=== PATIENT | female | born 1930 | race Caucasian/White ===

== ENCOUNTER → 2016-07-24 | Day surgery (SDC) | payer OTHER, MEDICARE ==
[2016-07-12 08:05] VITALS: Ht 157.5 cm; Wt 65.9 kg
[~2016-07-24] VITALS: Ht 157.5 cm; Wt 65.9 kg
[~2016-07-24] MED LIST: ACET-1256 PO; ALPR-411 PO; ATOR10TA82 PO; BLOOD THINNER SQ; CARB25TA PO; CITA10TA4 PO; LIDO5DIS10 TD; MAGNSUS5 PO; POLY335019 PO
== END | disposition home or self-care (01) ==
LOC: C.PAT 13:41 → EDSTATUS 14:00
PROVIDERS: ATTEND Physical Medicine & Rehabilitation
DX: M54.16 Radiculopathy, lumbar region (principal)

== ENCOUNTER → 2016-10-09 | Day surgery (SDC) | payer OTHER, MEDICARE ==
[2016-09-24 07:37] VITALS: Ht 157.5 cm; Wt 65.9 kg
[~2016-10-09] VITALS: Ht 157.5 cm; Wt 65.9 kg
[~2016-10-09] MED LIST changes: +IOPAMIDOL INJ 61% 15 ML VIAL ONE; +LIDOCAINE HCL 1% MPF 5 ML VIAL ONE; +SODIUM CHLORIDE 0.9% INJ 10 ML VIAL ONE
--- NOTE | 2016-10-09 11:51 | History & Physical Bridge - [place] ---
H&P Re-Evaluation Bridge Note: I have examined the patient, reviewed the History & Physical and in the interval since the performance of the History & Physical I have noted the following changes of clinical significance: No changes noted
[2016-10-09 12:16] VITALS: TEMP 37.2
--- NOTE | 2016-10-09 12:18 | Discharge Instructions ---
Discharge Instructions Date of Service October 09, 2016. Visit Reason for Visit: Lumbar Radiculopathy Discharge Discharge Diagnosis / Problem: leg pain Discharge Goals Goal(s): Decrease discomfort, Improve function Activity Recommendations Activity Limitations: resume your previous activity Anesthesia . Post Anesthesia Instructions: If you have had General Anesthesia or IV Sedation: * Do not drive today. * Resume driving when surgeon permits. * Do not make important decisions or sign legal documents today. * Call surgeon for: 1. Temperature elevations greater than 101 degrees F. 2. Uncontrollable pain. 3. Excessive bleeding. 4. Persistent nausea and vomiting. 5. Medication intolerance (nausea, vomiting or rash). * For nausea and vomiting use only clear liquids such as: tea, soda, bouillon until nausea subsides, then gradually increase diet as tolerated. * If you have any concerns or questions, call your surgeon's office. If physician is unavailable and it is an emergency, call 911 or go to the nearest emergency room. . Diet Recommendations Recommended Home Diet: resume previous diet Procedures Procedures Performed: Lumbar Epidural Steroid Injection Pending Studies Studies pending at discharge: no Medical Emergencies . Who to Call and When: Medical Emergencies: If at any time you feel your situation is an emergency, please call 911 immediately. . Non-Emergent Contact Non-Emergency issues call your: Specialist . . "Provider Documentation" section prepared by Raphael Olivo. .
[2016-10-09 12:28] VITALS: BP 146/79; PULSE 78; O2SAT 97
--- NOTE | 2016-10-09 14:23 | OPERATIVE REPORT ---
DATE OF OPERATION: 10/09/2016 PREOPERATIVE DIAGNOSES: Lumbar spinal stenosis with neurogenic claudication and bilateral lower extremity radiculopathies. POSTOPERATIVE DIAGNOSES: Same. PROCEDURE: Right paramedian L4-L5 interlaminar epidural steroid injection under fluoroscopic guidance. INDICATIONS: The patient is an 85-year-old white female who presents today for a lumbar epidural steroid injection. She received them with improvement in functional status. Last one was given in March and she is having a difficult time ambulating and functioning over the past weeks to months. PHYSICAL EXAMINATION: Pleasant female seated comfortably. She has no tenderness to palpation over sciatic notches. No focal weakness. She has had decrease distal sensation in the right L5 dermatomal distribution. CONSENT: Verbal and written consent was obtained from the patient. Risks and benefits were reviewed. Risks include, but are not limited to epidural abscess, epidural hematoma, allergic reaction, and dural puncture. The patient wishes to proceed. DESCRIPTION OF PROCEDURE: The patient was taken back to the special procedures room of the [facility], where she was maintained in a prone position. Backside was cleansed with chlorhexidine and a dry sterile dressing was placed. Fluoroscope was used to identify the L5-S1 intralaminar space. Overlying skin was anesthetized with 4 mL of lidocaine 1% with a 25-gauge 1-1/2 inch needle. A 22-gauge 3-1/2 inch Tuohy needle was then directed down towards the intralaminar space on the right side at L4-L5. Loss of resistance was noted at a depth of 6 cm. Isovue less than a 0.25 of a mL was injected in which showed an epidural placement. She then underwent injection after negative aspiration of 40 mg of Depo-Medrol and 4 mL of preservative free sodium chloride. Injection was well tolerated. DISPOSITION: 1. The patient was taken out into the discharge recovery area, where she will be discharged home once discharge criteria have been met. 2. Follow up in the [facility] Sports Medicine office in 2-4 weeks. I attest to the content of the Intraoperative Record and any orders documented therein. Any exceptio ns are noted below.
== END | disposition home or self-care (01) ==
LOC: X.SURG 11:10
PROVIDERS: ATTEND Physical Medicine & Rehabilitation
DX: M48.06 Spinal stenosis, lumbar region (principal); M54.16 Radiculopathy, lumbar region

== ENCOUNTER 2016-11-05 13:13 | Emergency (ER) | payer OTHER, MEDICARE ==
[~2016-11-05] VITALS: Ht 162.6 cm; Wt 66.7 kg
[~2016-11-05 13:13] MED LIST changes: -BLOOD THINNER SQ; -IOPAMIDOL INJ 61% 15 ML VIAL ONE; -LIDOCAINE HCL 1% MPF 5 ML VIAL ONE; -SODIUM CHLORIDE 0.9% INJ 10 ML VIAL ONE
[2016-11-05 13:19] VITALS: TEMP 36.7; Ht 162.6 cm; Wt 66.7 kg
--- NOTE | 2016-11-05 13:30 | EMERGENCY ROOM VISIT NOTE ---
History Report prepared by Mary Ann: Twila Ruiz Under the Supervision of: Dr. Doug Jennings M.D. First contact with patient: 13:14 Chief Complaint: FALL Stated Complaint: FALL/SHOULDER AND BACK PAIN History of Present Illness The patient is an 86 year old female who presents to the Emergency Room with complaints of a sudden fall that occurred prior to arrival. Per the patient's son the patient was walking in a room today without her walker and fell onto the carpeted floor. He states that the patient has a history of spinal stenosis and a spine curvature. The patient reports that she follows with pain management and wears pain patches. The patient reports back and shoulder pain today. She denies any abdominal pain. Source of History: patient, family (son) Onset: prior to arrival Position: other (global) Quality: other (fall) Timing: other (sudden) Associated Symptoms: + back pain, No abdominal pain Note: Associated Symptoms: shoulder pain Review of Systems See HPI for pertinent positives & negatives. A total of 10 systems reviewed and were otherwise negative. Past Medical & Surgical Medical Problems: (1) Parkinson disease Family History Cancer Social History Smoking Status: Former Smoker Alcohol Use: none Drug Use: none Marital Status: single Housing Status: lives alone Occupation Status: retired Current/Historical Medications Scheduled Atorvastatin (Lipitor), 10 MG PO QPM Carbidopa-Levodopa (Sinemet Cr 25MG/100MG), 1.5 TAB PO TID Citalopram Hydrobromide (Citalopram Hydrobromide), 10 MG PO QAM Scheduled PRN Acetaminophen (Tylenol), 1-2 TABS PO Q6H PRN for Pain Alprazolam (Xanax), 0.5 MG PO Q6H PRN for Anxiety Lidocaine (Lidoderm Patch 5% Patch), 1 PATCH TD DAILY PRN for Pain Magnesium Hydroxide (Milk Of Magnesia), 30 ML PO DAILY PRN for Constipation Polyethylene Glycol 3350 (Miralax), 17 GM PO DAILY PRN for CONSTIPATION Allergies Coded Allergies: Iodine (Verified Allergy, Intermediate, HIVES, 11/05/16) Shellfish (Verified Allergy, Unknown, GI UPSET, 11/05/16) Physical Exam Vital Signs Date Time Temp Pulse Resp B/P (MAP) Pulse Ox O2 Delivery O2 Flow Rate FiO2 11/05/16 16:56 88 20 167/102 93 11/05/16 15:51 93 Room Air 11/05/16 15:51 93 Room Air 11/05/16 14:12 75 16 143/73 97 Room Air 11/05/16 13:19 36.7 80 16 138/90 98 Room Air 11/05/16 13:19 65 Physical Exam GENERAL: Patient is a healthy-appearing well-nourished female HEAD: Normocephalic atraumatic EYES: Ocular movements intact pupils equal and react to light OROPHARYNX mucous membranes are moist no exudates present no erythema or edema present NECK: Supple no nuchal rigidity CHEST: Good equal expansion LUNGS: Clear and equal to auscultation CARDIAC: Normal S1 and S2 ABDOMEN: Soft nontender no guarding BACK: No CVA tenderness EXTREMITIES: No pain upon palpation normal muscle strength in all groups no clubbing cyanosis or edema NEURO: Patient is following commands and answering questions appropriately. Alert and oriented x3 Cranial Nerves 2-12 grossly intact Medical Decision & Procedures ER Provider Diagnostic Interpretation: Radiology results as stated below per my review and radiologist interpretation: CT OF THE THORACIC SPINE WITHOUT CONTRAST CLINICAL HISTORY: Fall. Right mid back pain. TECHNIQUE: Axial images of the thoracic spine were obtained without IV contrast. Sagittal and coronal reconstructions were viewed. COMPARISON STUDY: Chest CT October 06, 2014. FINDINGS: Vertebral body heights are maintained. Several Schmorl's nodes are chronic. No acute thoracic spine fracture is identified. There is mild multilevel degenerative disc disease. Paravertebral soft tissues are unremarkable by CT. No fractures are identified within the posterior ribs. No pneumothorax is shown. The lumbar spine will be reported separately. There is moderate cardiomegaly. IMPRESSION: No acute thoracic spine fracture or subluxation. Electronically signed by: Vimal Miller M.D. 11/05/2016 2:17 PM Dictated Date/Time: 11/05/2016 2:08 PM The status of this report is Signed. Draft = Not yet reviewed or approved by Radiologist. RIGHT SHOULDER MIN 2 VIEWS ROUTINE CLINICAL HISTORY: Right shoulder pain following fall. COMPARISON: None FINDINGS: Alignment of the right acromioclavicular and glenohumeral joints is anatomic. There is moderate AC joint arthrosis as well as mild glenohumeral joint arthrosis. There are findings suggestive of calcific tendinitis of the right rotator cuff. There is no acute fracture. IMPRESSION: 1. No acute fracture or dislocation of the right shoulder. 2. 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 3. Findings suggestive of calcific tendinitis of the right rotator cuff. Electronically signed by: Vimal Miller M.D. 11/05/2016 2:04 PM Dictated Date/Time: 11/05/2016 2:[address] OF THE LUMBAR SPINE WITHOUT CONTRAST CLINICAL HISTORY: Back pain following fall. TECHNIQUE: Axial images of the lumbar spine were obtained without IV contrast. Sagittal and coronal reconstructions were viewed. COMPARISON STUDY: Lumbar spine MRI February 20, 2015. FINDINGS: There is mild dextroscoliosis of the lumbar spine. No acute fracture is identified. There are several Schmorl's nodes. There is moderate multilevel disc space narrowing with osteophytosis and vacuum disc phenomenon. Sacroiliac joints are intact. Paravertebral soft tissues are unremarkable. IMPRESSION: 1. No acute lumbar spine fracture or subluxation. 2. Moderate multilevel degenerative disc disease and facet arthrosis. Electronically signed by: Vimal Miller M.D. 11/05/2016 2:21 PM Dictated Date/Time: 11/05/2016 2:17 PM CHEST ONE VIEW PORTABLE CLINICAL HISTORY: Right shoulder pain. Fall. COMPARISON STUDY: Chest radiograph and chest CT October 06, 2014. FINDINGS: Lung volumes are normal. Lungs are clear. There is no pneumothorax or pleural effusion. Cardiomediastinal silhouette is stable. There is no evidence of pulmonary edema. IMPRESSION: No acute cardiopulmonary findings. Electronically signed by: Vimal Miller M.D. 11/05/2016 2:03 PM Dictated Date/Time: 11/05/2016 2:01 PM Laboratory Results Test 11/05/16 15:35 Labs reviewed by ED physician. ED Course 1317: Past medical records reviewed. The patient was evaluated in room A11B. A complete history and physical examination was performed. 1504: I reevaluated the patient and she is doing well. I discussed the exam findings with her and I discussed the treatment plan. She verbalized complete understanding and agreement. She is going to have an ambulation trial. 1520: Case Management is going to look into possible rehabilitation for the patient. 1647: I spoke to Case Management and they gave the patient all the resources for outpatient management. Medical Decision Differential diagnosis: Etiologies such as fracture, dislocation, intra-abdominal, pneumothorax, intrathoracic , intracranial, neurologic, as well as other traumatic pathologies were entertained. Medication Reconciliation: I attest that I have personally reviewed the patient' s current medication list Blood Pressure Screening: Patient was found to have an elevated blood pressure and was referred to their primary care doctor for recheck and further treatment This is an 86-year-old female who presents emergency department after a fall at home. The patient was unable to use her walker at home and unfortunately fell backwards. She is complaining of right shoulder pain as well as back pain. Based on this the patient was sent for CT of the spine and x-rays of the shoulder and chest. The patient does not appear to have any acute fractures or dislocations. I did discuss this with both the patient and her son. The patient's son is very concerned that the patient is going to fall again at home however the patient is adamantly refusing to be admitted. I also involved case management in talking with the patient to see if she would be a good candidate for [facility] [place] however the patient is again adamantly refusing. The patient has demonstrated no significant defect in the decision-making capacity to make choices. The encounter had a good level of communication with language the patient can easily understand. I feel trust was present and conveyed that our action/intentions were the best interest of the patient. The patient was given all relevant information and reiterated the explained risks and benefits. The patient explained the reasoning for refusing treatment clearly. The patient possesses and expresses a set of values and goals, the ability to communicate and understand, and an ability to reason and deliberate. Despite acting emphatically, attentively and with the utmost patient's the patient declined further treatment. I offered options, negotiated, and explored every reasonable choice. I must respect the patient's autonomy and that they feel that their choices are best for them despite the associated risks of leaving without completing the evaluation. The patient was informed about the findings as listed above. All questions were answered and he was pleased with the treatment. Return instructions were outlined and the patient was discharged in stable condition. Impression Primary Impression: Fall Additional Impression: Back pain Scribe Attestation The scribe's documentation has been prepared under my direction and personally reviewed by me in its entirety. I confirm that the note above accurately reflects all work, treatment, procedures, and medical decision making performed by me. Departure Information Dispostion Home / Self-Care Referrals Zaida Hargrove M.D. (PCP) Forms HOME CARE DOCUMENTATION FORM, IMPORTANT VISIT INFORMATION, School Instructions, Work Instructions Patient Instructions ED Back Care Tips, ED Neck Back Pain General, Hypertension Dc, My [facility] Additional Instructions You were found to have an elevated blood pressure today (>120 sytolic or >90 diastolic). Per medicare guidelines, you need to follow up with this blood pressure screening with your Primary Care Physician (PCP). For a new PCP call [phone]. You have been examined and treated today on an emergency basis only. This is not a substitute for, or an effort to provide, complete comprehensive medical care. It is impossible to recognize and treat all injuries or illnesses in a single emergency department visit. It is therefore important that you follow up closely with DR Hargrove. Call as soon as possible for an appointment. Thank you for your time and consideration. I look forward to speaking with you again soon. Please don't hesitate to call us if you have any questions. Problem Qualifiers Primary Impression: Fall Encounter type: initial encounter Qualified Codes: W19.XXXA - Unspecified fall, initial encounter Additional Impression: Back pain Back pain location: low back pain Chronicity: acute Back pain laterality: unspecified Sciatica presence: unspecified whether sciatica present Qualified Codes: M54.5 - Low back pain
--- NOTE | 2016-11-05 14:05 | DIAGNOSTIC IMAGING REPORT ---
CHEST ONE VIEW PORTABLE CLINICAL HISTORY: Right shoulder pain. Fall. COMPARISON STUDY: Chest radiograph and chest CT October 06, 2014. FINDINGS: Lung volumes are normal. Lungs are clear. There is no pneumothorax or pleural effusion. Cardiomediastinal silhouette is stable. There is no evidence of pulmonary edema. IMPRESSION: No acute cardiopulmonary findings. Electronically signed by: Vimal Miller M.D. 11/05/2016 2:03 PM Dictated Date/Time: 11/05/2016 2:01 PM
--- NOTE | 2016-11-05 14:06 | DIAGNOSTIC IMAGING REPORT ---
RIGHT SHOULDER MIN 2 VIEWS ROUTINE CLINICAL HISTORY: Right shoulder pain following fall. COMPARISON: None FINDINGS: Alignment of the right acromioclavicular and glenohumeral joints is anatomic. There is moderate AC joint arthrosis as well as mild glenohumeral joint arthrosis. There are findings suggestive of calcific tendinitis of the right rotator cuff. There is no acute fracture. IMPRESSION: 1. No acute fracture or dislocation of the right shoulder. 2. 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 3. Findings suggestive of calcific tendinitis of the right rotator cuff. Electronically signed by: Vimal Miller M.D. 11/05/2016 2:04 PM Dictated Date/Time: 11/05/2016 2:03 PM
--- NOTE | 2016-11-05 14:18 | DIAGNOSTIC IMAGING REPORT ---
CT OF THE THORACIC SPINE WITHOUT CONTRAST CLINICAL HISTORY: Fall. Right mid back pain. TECHNIQUE: Axial images of the thoracic spine were obtained without IV contrast. Sagittal and coronal reconstructions were viewed. COMPARISON STUDY: Chest CT October 06, 2014. FINDINGS: Vertebral body heights are maintained. Several Schmorl's nodes are chronic. No acute thoracic spine fracture is identified. There is mild multilevel degenerative disc disease. Paravertebral soft tissues are unremarkable by CT. No fractures are identified within the posterior ribs. No pneumothorax is shown. The lumbar spine will be reported separately. There is moderate cardiomegaly. IMPRESSION: No acute thoracic spine fracture or subluxation. Electronically signed by: Vimal Miller M.D. 11/05/2016 2:17 PM Dictated Date/Time: 11/05/2016 2:08 PM
--- NOTE | 2016-11-05 14:22 | DIAGNOSTIC IMAGING REPORT ---
CT OF THE LUMBAR SPINE WITHOUT CONTRAST CLINICAL HISTORY: Back pain following fall. TECHNIQUE: Axial images of the lumbar spine were obtained without IV contrast. Sagittal and coronal reconstructions were viewed. COMPARISON STUDY: Lumbar spine MRI February 20, 2015. FINDINGS: There is mild dextroscoliosis of the lumbar spine. No acute fracture is identified. There are several Schmorl's nodes. There is moderate multilevel disc space narrowing with osteophytosis and vacuum disc phenomenon. Sacroiliac joints are intact. Paravertebral soft tissues are unremarkable. IMPRESSION: 1. No acute lumbar spine fracture or subluxation. 2. Moderate multilevel degenerative disc disease and facet arthrosis. Electronically signed by: Vimal Miller M.D. 11/05/2016 2:21 PM Dictated Date/Time: 11/05/2016 2:17 PM
[2016-11-05 15:51] VITALS: O2SAT 93
[2016-11-05 16:56] VITALS: BP 167/102; PULSE 88; O2SAT 93
[2016-11-21] MEDS ORDERED: BLOOD THINNER SQ (14:52)
== END 2016-11-05 16:59 | disposition home or self-care (01) ==
LOC: EDBD 13:13 → C.EDA 13:14
DX: S39.92XA Unspecified injury of lower back, initial encounter (principal); S49.91XA Unspecified injury of right shoulder and upper arm, initial encounter; M54.5 Low back pain; W18.09XA Striking against other object with subsequent fall, initial encounter; M51.86 Other intervertebral disc disorders, lumbar region; M19.011 Primary osteoarthritis, right shoulder; G20 Parkinson's disease; Z87.891 Personal history of nicotine dependence; G89.29 Other chronic pain

== ENCOUNTER → 2017-01-15 | Day surgery (SDC) | payer OTHER, MEDICARE ==
[2016-11-21 14:54] VITALS: BMI 26.0
[2016-12-24 10:44] VITALS: Ht 157.5 cm; Wt 65.9 kg
[~2017-01-15] VITALS: Ht 157.5 cm; Wt 65.9 kg
[~2017-01-15] MED LIST changes: -ATOR10TA82 PO; +ATOR10TA88 PO; +IOPAMIDOL INJ 61% 15 ML VIAL ONE; +LIDOCAINE HCL 1% MPF 5 ML VIAL ONE; +SODIUM CHLORIDE 0.9% INJ 10 ML VIAL ONE
[2017-01-15 15:57] VITALS: TEMP 37.5
--- NOTE | 2017-01-15 15:57 | Discharge Instructions ---
Discharge Instructions Date of Service Jan 15, 2017. Visit Reason for Visit: Lumbar Radiculopathy Discharge Discharge Diagnosis / Problem: low back and leg pain Discharge Goals Goal(s): Decrease discomfort, Improve function Activity Recommendations Activity Limitations: resume your previous activity Anesthesia . Post Anesthesia Instructions: If you have had General Anesthesia or IV Sedation: * Do not drive today. * Resume driving when surgeon permits. * Do not make important decisions or sign legal documents today. * Call surgeon for: 1. Temperature elevations greater than 101 degrees F. 2. Uncontrollable pain. 3. Excessive bleeding. 4. Persistent nausea and vomiting. 5. Medication intolerance (nausea, vomiting or rash). * For nausea and vomiting use only clear liquids such as: tea, soda, bouillon until nausea subsides, then gradually increase diet as tolerated. * If you have any concerns or questions, call your surgeon's office. If physician is unavailable and it is an emergency, call 911 or go to the nearest emergency room. . Diet Recommendations Recommended Home Diet: resume previous diet Procedures Procedures Performed: LUMBAR EPIDURAL STEROID INJECTION Pending Studies Studies pending at discharge: no Medical Emergencies . Who to Call and When: Medical Emergencies: If at any time you feel your situation is an emergency, please call 911 immediately. . Non-Emergent Contact Non-Emergency issues call your: Specialist . . "Provider Documentation" section prepared by Raphael Olivo. .
[2017-01-15 16:09] VITALS: BP 148/76; PULSE 56; O2SAT 96
--- NOTE | 2017-01-15 19:01 | OPERATIVE REPORT ---
DATE OF OPERATION: 01/15/2017 PREOPERATIVE DIAGNOSIS: Severe lumbar spinal stenosis with radiculopathy and neurogenic claudication. POSTOPERATIVE DIAGNOSIS: Same. PROCEDURE: Right L4-L5 paramedian intralaminar epidural steroid injection under fluoroscopic guidance. INDICATIONS: The patient is an 86-year-old white female who receives epidural steroid injections to help with mobility. She recently fell because her legs gave out with some associated back pain. She presents today for an epidural injection to provide her with some relief. PHYSICAL EXAMINATION: Pleasant female seated out comfortably. She has some tenderness to palpation of the right sciatic notch. She has no focal weakness. Negative seated straight leg raises and decreased right L5 dermatomal distribution. CONSENT: Verbal and written consent was obtained from the patient. Risks and benefits were reviewed. Risks include but are not limited to epidural abscess, epidural hematoma, allergic reaction, dural puncture. The patient wishes to proceed. PROCEDURE: The patient was taken back to the special procedures room of the [facility], where she was maintained in a prone position. Backside was cleansed with chlorhexidine prep in lieu of the Betadine because of her TOPICAL IODINE ALLERGY. A dry sterile dressing was then placed. A fluoroscope was used to identify the L4-L5 intralaminar space which was very limited in terms of accessibility. The overlying skin was anesthetized with 5 mL total of lidocaine 1% and a 22 gauge 3-1/2 inch Tuohy needle was directed down towards the interlaminar space. Loss of resistance was noted at a depth of 6 cm. Isovue 300 contrast was injected in, which appeared to be thecal at first, it was retracted a millimeter and reinjected which collected more, retracted another millimeter and was in the soft tissue. Retracted in the initial thecal appearance had more of the appearance of the ligamentum flavum flattening of the front and in epidural. It was then brought into an AP view and confirmed. She then underwent injection after negative aspiration of 40 mg of Depo-Medrol and 4 mL of preservative free sodium chloride. The injection reproduced a familiar radicular sensation down the right leg which was transient. DISPOSITION: 1. The patient is taken out into the discharge recovery area where she will be discharged home once discharge criteria have been met. 2. Follow up with the [facility] Sports Medicine office in 2-4 weeks. I attest to the content of the Intraoperative Record and any orders documented therein. Any exception s are noted below.
== END | disposition home or self-care (01) ==
LOC: X.SURG 14:19
PROVIDERS: ATTEND Physical Medicine & Rehabilitation
DX: M48.06 Spinal stenosis, lumbar region (principal); I73.9 Peripheral vascular disease, unspecified; Z79.899 Other long term (current) drug therapy

== ENCOUNTER 2017-06-19 16:22 | Observation (INO) | payer OTHER, MEDICARE ==
[~2017-06-19] VITALS: Ht 162.6 cm; Wt 69.4 kg
[2017-06-19 10:30] VITALS: BP 162/78; TEMP 36.7; BMI 26.3
[~2017-06-19 16:22] MED LIST changes: +ATOR10TA82 PO; -ATOR10TA88 PO; -IOPAMIDOL INJ 61% 15 ML VIAL ONE; -LIDOCAINE HCL 1% MPF 5 ML VIAL ONE; -SODIUM CHLORIDE 0.9% INJ 10 ML VIAL ONE
[2017-06-19 16:28] VITALS: Ht 162.6 cm; Wt 69.4 kg
[2017-06-19] MEDS ORDERED: SODIUM CHLORIDE 0.9% 1000ML 1,000 ML IV STA (17:58)
[2017-06-19] MEDS ORDERED: SODIUM CHLORIDE 0.9% 1000ML 250 ML IV STA (17:58)
[2017-06-19] MEDS ORDERED: LDDP5 TOP (18:11)
[2017-06-19] MEDS ORDERED: AMOX500C3 PO (18:14)
[2017-06-19] MEDS ORDERED: CARB25TA16 PO (18:15)
--- NOTE | 2017-06-19 18:36 | DIAGNOSTIC IMAGING REPORT ---
CHEST ONE VIEW PORTABLE CLINICAL HISTORY: 86 years-old Female presenting with CHEST PAIN. TECHNIQUE: Portable upright AP view of the chest was obtained. COMPARISON: 11/05/2016. FINDINGS: Atherosclerosis of aortic arch. Cardiac silhouette enlarged. Lungs and pleural spaces clear. Osteopenia suspected. Upper abdomen normal. IMPRESSION: 1. Cardiomegaly. Otherwise no acute cardiopulmonary disease. Electronically signed by: Richard Morales M.D. 06/19/2017 6:35 PM Dictated Date/Time: 06/19/2017 6:34 PM
--- NOTE | 2017-06-19 18:39 | EMERGENCY ROOM VISIT NOTE ---
History Report prepared by Mary Ann: Joselyn Smith Under the Supervision of: Dr. Lance Moise M.D. First contact with patient: 17:45 Chief Complaint: WEAKNESS Stated Complaint: TIGHT CHEST,WEAK,CONFUSED Nursing Triage Summary: Son reports confusion, weakness. Recent UTI. History of Present Illness The patient is an 86 year old female who presents to the Emergency Room with complaints of worsening weakness starting a few days ago. The patient's son states that the patient started a new medication three weeks ago for her Parkinson's disease. The son states that she has had a headache since then, expect for today. He reports that a week after the change, he took her to the PCP who diagnosed her with a sinus infection and was put on Amoxicillin. He states that she was also diagnosed with a UTI. The son reports that she started a cough a few days ago and complains of her chest feeling tight. He states that she had a CT ordered by her PCP that was negative on the 2nd. The patient complains of weakness, confusion, no voice when she woke up this morning, and abdominal cramping. The patient denies sore throat and chest pain. Source of History: patient, family Onset: a few days ago Position: other (global) Quality: other (weakness) Timing: worsening Associated Symptoms: + cough, + abdominal pain (cramping), No headache, No sorethroat, No chest pain Note: The patient complains of chest tightness, confusion, and no voice when she woke up. Review of Systems See HPI for pertinent positives & negatives. A total of 10 systems reviewed and were otherwise negative. Past Medical & Surgical Medical Problems: (1) Cough (2) Parkinson disease Old medical records were reviewed. Nurse's notes were reviewed and I agree with. Family History Cancer Social History Smoking Status: Former Smoker Alcohol Use: none Drug Use: none Marital Status: single Housing Status: lives alone Occupation Status: retired Current/Historical Medications Scheduled Acetaminophen (Apap), 325 MG PO BID Alprazolam (Xanax), 0.5 MG PO TID Amoxicillin (Amoxil), 500 MG PO BID Atorvastatin (Lipitor), 10 MG PO QPM Carbidopa-Levodopa (Sinemet), 1 TAB PO TIDM Carbidopa/Levodopa (Sinemet Cr 25MG/100MG), 1 TAB PO QPM Citalopram Hydrobromide (Citalopram Hydrobromide), 10 MG PO QAM Lidocaine (Lidocaine), 1 PATCH TOP DAILY Polyethylene Glycol 3350 (Miralax), 17 GM PO MWF Allergies Coded Allergies: Iodine (Verified Allergy, Unknown, UPSET STOMACH, 06/19/17) Shellfish (Verified Allergy, Unknown, GI UPSET, 06/19/17) Physical Exam Vital Signs Date Time Temp Pulse Resp B/P (MAP) Pulse Ox O2 Delivery O2 Flow Rate FiO2 06/19/17 20:32 65 16 150/75 98 Room Air 06/19/17 19:38 64 16 156/75 99 Nasal Cannula 2.0 06/19/17 18:17 59 16 167/85 98 Room Air 06/19/17 18:17 98 Room Air 06/19/17 16:28 36.4 120 18 148/74 96 Room Air 06/19/17 10:30 36.7 20 162/78 Room Air Physical Exam General: Non-ill appearing older female in no acute distress. Hard of hearing and answers questions appropriately. Non toxic appearing. HEENT: Normal cephalic atraumatic. Pupils are equal round and reactive to light. Extraocular movements are intact. Oropharynx is pink with moist mucous membranes. No swelling of the mouth lips or tongue. Neck: Supple with a midline trachea. No meningeal signs or stiffness, no JVD or bruits. No Stridor. Chest: Clear to auscultation bilaterally. No wheezes or rhonchi. No increased work of breathing. Heart: regular rate and rhythm. Abdomen: Soft nontender, nondistended without rebound guarding or rigidity. Extremities: No cyanosis clubbing or edema. No calf tenderness or assymetry Spine/Back. Non tender to palpation. No CVA tenderness Skin: Good turgor without rashes. Neurologic exam: Cranial nerves two through 12 are intact. Motor and sensation are intact and symmetrical throughout. Tremor with movement consistent with Parkinson's disease. Medical Decision & Procedures ER Provider Diagnostic Interpretation: Radiology results as stated below per my review and radiologist interpretation: CHEST ONE VIEW PORTABLE CLINICAL HISTORY: 86 years-old Female presenting with CHEST PAIN. TECHNIQUE: Portable upright AP view of the chest was obtained. COMPARISON: 11/05/2016. FINDINGS: Atherosclerosis of aortic arch. Cardiac silhouette enlarged. Lungs and pleural spaces clear. Osteopenia suspected. Upper abdomen normal. IMPRESSION: 1. Cardiomegaly. Otherwise no acute cardiopulmonary disease. Electronically signed by: Richard Morales M.D. 06/19/2017 6:35 PM Dictated Date/Time: 06/19/2017 6:34 PM Laboratory Results 06/19/17 18:35 Red Blood Count 4.02, Mean Corpuscular Volume 104.7, Mean Corpuscular Hemoglobin 34.6, Mean Corpuscular Hemoglobin Concent 33.0, Mean Platelet Volume 9.8 06/19/17 18:35 Test 06/19/17 18:35 06/19/17 18:40 06/19/17 18:41 06/19/17 19:09 White Blood Count 3.24 K/uL (4.8-10.8) Red Blood Count 4.02 M/uL (4.2-5.4) Hemoglobin 13.9 g/dL (12.0-16.0) Hematocrit 42.1 % (37-47) Mean Corpuscular Volume 104.7 fL (80-100) Mean Corpuscular Hemoglobin 34.6 pg (25-34) Mean Corpuscular Hemoglobin Concent 33.0 g/dl (32-36) Platelet Count 121 K/uL (130-400) Mean Platelet Volume 9.8 fL (7.4-10.4) RDW Standard Deviation 47.2 fL (36.4-46.3) RDW Coefficient of Variation 12.3 % (11.5-14.5) Neutrophils % (Manual) 28.1 % Lymphocytes % (Manual) 40.4 % Variant Lymphocytes % (manual) 14.0 % Monocytes % (Manual) 11.4 % Eosinophils % (Manual) 3.5 % Basophils % (Manual) 2.6 % Neutrophils # (Manual) 0.91 K/uL (1.4-6.5) Total Absolute Neutrophils 0.91 K/uL (1.4-6.5) Lymphocytes # (Manual) 1.31 K/uL (1.2-3.4) Absolute Variant Lymphocytes 0.45 K/uL Total Absolute Lymphocytes 1.76 K/uL (1.2-3.4) Monocytes # (Manual) 0.37 K/uL (0.11-0.59) Eosinophils # (Manual) 0.11 K/uL (0-0.5) Basophils # (Manual) 0.08 K/uL (0-0.2) Large Platelets 1+ Macrocytosis PRESENT Prothrombin Time 11.1 SECONDS (9.0-12.0) Prothromb Time International Ratio 1.1 (0.9-1.1) Activated Partial Thromboplast Time 28.9 SECONDS (21.0-31.0) Partial Thromboplastin Ratio 1.1 Anion Gap 4.0 mmol/L (3-11) Est Creatinine Clear Calc Drug Dose 55.8 ml/min Estimated GFR () 91.2 Estimated GFR (Non- 78.6 BUN/Creatinine Ratio 14.4 (10-20) Calcium Level 9.0 mg/dl (8.5-10.1) Total Bilirubin 0.4 mg/dl (0.2-1) Direct Bilirubin 0.1 mg/dl (0-0.2) Aspartate Amino Transf (AST/SGOT) 23 U/L (15-37) Alanine Aminotransferase (ALT/SGPT) 12 U/L (12-78) Alkaline Phosphatase 90 U/L (45-117) Total Protein 7.1 gm/dl (6.4-8.2) Albumin 3.4 gm/dl (3.4-5.0) Lipase 126 U/L (73-393) Bedside Lactic Acid Venous 0.52 mmol/L (0.90-1.70) Bedside Troponin I < 0.030 ng/ml (0-0.045) Urine Color YELLOW Urine Appearance CLOUDY (CLEAR) Urine pH 6.5 (4.5-7.5) Urine Specific [place] 1.011 (1.000-1.030) Urine Protein NEG (NEG) Urine Glucose (UA) NEG (NEG) Urine Ketones NEG (NEG) Urine Occult Blood NEG (NEG) Urine Nitrite NEG (NEG) Urine Bilirubin NEG (NEG) Urine Urobilinogen NEG (NEG) Urine Leukocyte Esterase SMALL (NEG) Urine WBC (Auto) 1-5 /hpf (0-5) Urine RBC (Auto) 0-4 /hpf (0-4) Urine Hyaline Casts (Auto) 0 /lpf (0-5) Urine Epithelial Cells (Auto) 20-30 /lpf (0-5) Urine Bacteria (Auto) NEG (NEG) Urine Yeast (Auto) (NONE PRSENT) Influenza Type A Antigen Neg for Influ A (NEG) Influenza Type B Antigen Neg for Influ B (NEG) Laboratory studies as stated above per my review. Medications Administered Medications (Trade) Dose Ordered Sig/Joelle Route Start Time Stop Time Status Last Admin Dose Admin Sodium Chloride 250 ml @ 999 mls/hr Q16M STAT IV 06/19/17 17:58 06/19/17 18:13 DC 06/19/17 17:58 999 MLS/HR Sodium Chloride 1,000 ml @ 100 mls/hr Q10H STAT IV 06/19/17 17:58 06/19/17 23:45 DC 06/19/17 17:58 100 MLS/HR Levofloxacin (Levaquin / D5W) 750 mg NOW STAT IV 06/19/17 20:42 06/19/17 20:43 DC 06/19/17 20:42 750 MG ECG Indication: weakness Rate (beats per minute): 57 Rhythm: sinus bradycardia Findings: no acute ischemic change, no ectopy, other (no prolongation of QT interval, normal axis) Comparison ECG Date: October 03, 2014 Change: no significant change Change: Patient's electrocardiogram was interpreted by me. ED Course 174: Past medical records reviewed. The patient was evaluated in room C11B, and a complete history and physical examination were performed. 1757: Ordered NSS 1000 ml @ 100 mls/hr IV, NSS 250 ml @ 999 mls/hr IV. 0: I reevaluated the patient and she is resting comfortably. She is in no distress. She just got blood work done. 2041: Ordered Levofloxacin 750 mg IV. 2043: Discussed the patient's case with Dr. Steven Manley Hospitalist. The patient will be evaluated for further management. Medical Decision Differential diagnoses include influenza, pneumonia, bronchitis, cardiac disease , UTI, electrolyte abnormality, metabolic abnormality. This patient comes in as described above. She was placed in room C 11. She is here for treatment and evaluation of cough and weakness. Her son is concerned that she could've pneumonia or influenza. she's been treated for UTI with amoxicillin. She has a lot of vague symptoms she's had some headaches but does not have any headache at present. She had a CAT scan of her head a couple days ago which was negative. She's had no fall or trauma. She does have Parkinson' s disease. IV access established. EKG was obtained. There is nothing to suggest acute coronary syndrome or arrhythmia. Chest x-ray was unremarkable. I was concerned that she is neutropenic slightly with ANC of 910. Her urinalysis is unremarkable. They give her Levaquin for broad-spectrum coverage she's been cultured most likely is a viral illness but she is weak and older and I do think needs to be observed in the hospital. The patient and her son were happy with the plan and [facility]concilliation Current Medication List: was personally reviewed by me Blood Pressure Screening Patient's blood pressure: Elevated blood pressure Will be further monitored by the hospitalist. Consults Time Called: 2039 Consulting Physician: Dr. Steven Flaherty Returned Call: [phone] Discussed the patient's case with Dr. Steven Flaherty. The patient will be evaluated for further management. Impression Primary Impression: Weakness Additional Impression: Neutropenia Scribe Attestation The scribe's documentation has been prepared under my direction and personally reviewed by me in its entirety. I confirm that the note above accurately reflects all work, treatment, procedures, and medical decision making performed by me. Departure Information Dispostion Being Evaluated By Hospitalist Referrals Zaida Hargrove M.D. (PCP) Patient Instructions My [facility] Problem Qualifiers
[2017-06-19 19:08] LABS: INR 1.1 (0.9-1.1); PTT PATIENT 28.9 SECONDS (21.0-31.0)
[2017-06-19 19:11] LABS: ALBUMIN 3.4 gm/dl (3.4-5.0); CREATININE 0.68 mg/dl (0.60-1.20); POTASSIUM 3.7 mmol/L (3.5-5.1)
[2017-06-19 19:13] LABS: TOTAL PROTEIN 7.1 gm/dl (6.4-8.2)
[2017-06-19 20:00] LABS: HEMATOCRIT 42.1 % (37-47); HEMOGLOBIN 13.9 g/dL (12.0-16.0); MEAN CELL VOLUME 104.7 fL (80-100); MEAN CORPUSCULAR HEMOGLOBIN 34.6 pg (25-34); MEAN PLATELET VOLUME 9.8 fL (7.4-10.4); PLATELET COUNT 121 K/uL (130-400); RED CELL DISTRIBUTION WIDTH CV 12.3 % (11.5-14.5); RED CELL DISTRIBUTION WIDTH SD 47.2 fL (36.4-46.3); WHITE BLOOD COUNT 3.24 K/uL (4.8-10.8)
[2017-06-19 20:02] LABS: INFLUENZA B ANTIGEN Neg for Influ B (NEG)
[2017-06-19] MEDS ORDERED: LEVAQUIN 750MG / 150ML D5W IV STA (20:42)
[2017-06-19] MEDS ORDERED: IV FLUIDS COMPLETED PRN (21:30)
[2017-06-19 22:10] VITALS: BP 162/78; PULSE 80; TEMP 36.7; O2SAT 92
[2017-06-19] MEDS ORDERED: ACET325T82 PO (23:13)
[2017-06-19] MEDS ORDERED: CARB25TA2 PO (23:13)
[2017-06-19] MEDS ORDERED: CARBIDOPA/LEVODOPA 25/100MG EXT REL TAB PO SCH (23:15)
[2017-06-19] MEDS ORDERED: LIDODERM (LIDOCAINE) PATCH 5% TD PRN (23:15)
[2017-06-19] MEDS ORDERED: ATORVASTATIN 10 MG TAB PO SCH (23:15)
[2017-06-19] MEDS ORDERED: ONDANSETRON INJ 2 MG/ML 2 ML VIAL IV PRN (23:30)
[2017-06-19] MEDS ORDERED: POLYETHYLENE (MIRALAX) 17 GM PACK PO PRN (23:30)
--- NOTE | 2017-06-19 23:31 | History and Physical ---
History & Physical Date & Time of Service: Jun 19, 2017 at 23:21 Chief Complaint: COUGH Primary Care Physician: Zaida Hargrove M.D. History of Present Illness Source: patient, clinic records, hospital records 86 yo F who lives alone and has Parkinson's disease presents to the ER for a persistent nonproductive cough at the request of her son, who is concerned. The patient states that today was the first day she has not really coughed much , she denies shortness of breath, fevers, chills, recent sick contacts, and she is actually feeling well. She was treated with 10 days of Amoxicillin starting 06/10 for a sinus infection as outpatient and tomorrow is her last day. She received Levaquin in the ER. She was also found to have a UTI as outpatient recently, but there is no evidence of infection or symptoms at this time after the amoxicillin and she was not given any other antibiotics. She has a mild headache but otherwise has no ENT symptoms such as ear pain or fullness, sore throat, sinus drainage or pain. She has partkinson's and admits to not taking her sinemet or other meds and not eating all day as a result of coming to the ER today. She is hungry and requesting food. She denies abdominal pain, diarrhea or other issues with her bowels, however, on exam there is some mild TTP in the LLQ and RLQ on exam. Her belly is soft and not distended and at rest she has no issues with pain. Labs in the ER reveal a mild neutropenia with a WBC of 3K, but were otherwise normal. Past Medical/Surgical History Medical Problems: (1) Parkinson disease Status: Chronic Family History Cancer Social History Smoking Status: Former Smoker Smokeless Tobacco Use: No Alcohol Use: none Drug Use: none Marital Status: single Housing status: lives alone Occupational Status: retired Immunizations History of Influenza Vaccine: Yes Influenza Vaccine Date: Apr 08, 2017 History of Tetanus Vaccine?: Yes Tetanus Immunization Date: Dec 10, 2012 History of Pneumococcal: Yes Pneumococcal Date: Jul 13, 2014 History of Hepatitis B Vaccine: Unknown Multi-Drug Resistant Organisms History of MDRO: No Allergies Coded Allergies: Iodine (Verified Allergy, Unknown, UPSET STOMACH, 06/19/17) Shellfish (Verified Allergy, Unknown, GI UPSET, 06/19/17) Home Medications Scheduled Acetaminophen (Apap), 325 MG PO BID Alprazolam (Xanax), 0.5 MG PO TID Amoxicillin (Amoxil), 500 MG PO BID Atorvastatin (Lipitor), 10 MG PO QPM Carbidopa-Levodopa (Sinemet), 1 TAB PO TIDM Carbidopa/Levodopa (Sinemet Cr 25MG/100MG), 1 TAB PO QPM Citalopram Hydrobromide (Citalopram Hydrobromide), 10 MG PO QAM Lidocaine (Lidocaine), 1 PATCH TOP DAILY Polyethylene Glycol 3350 (Miralax), 17 GM PO MWF Review of Systems At least ten systems were reviewed and negative except as indicated in HPI above. Physical Exam Vital Signs Date Time Temp Pulse Resp B/P (MAP) Pulse Ox O2 Delivery O2 Flow Rate FiO2 06/19/17 22:10 36.7 80 20 162/78 (106) 92 Room Air 06/19/17 21:52 69 20 162/91 96 06/19/17 21:43 73 20 127/119 98 Nasal Cannula 2.0 06/19/17 20:32 65 16 150/75 98 Room Air 06/19/17 19:38 64 16 156/75 99 Nasal Cannula 2.0 06/19/17 18:17 59 16 167/85 98 Room Air 06/19/17 18:17 98 Room Air 06/19/17 16:28 36.4 120 18 148/74 96 Room Air General Appearance: WD/WN, no apparent distress Head: normocephalic, atraumatic Eyes: normal inspection, PERRL, sclerae normal ENT: normal ENT inspection, TMs normal (cerumen blocking external canal on the L), pharynx normal, + pertinent finding (hard of hearing) Neck: supple, no adenopathy, trachea midline Respiratory/Chest: lungs clear, normal breath sounds, no respiratory distress, no accessory muscle use Cardiovascular: regular rate, rhythm, no edema, no gallop, no JVD, no murmur, normal peripheral pulses Abdomen/GI: normal bowel sounds, soft, + tenderness (mild TTP in RLQ and LLQ), + pertinent finding (+BS present, nondistended) Back: normal inspection Extremities/Musculoskelatal: normal inspection, no pedal edema Neurologic/Psych: hide selector II-XII nml as tested, alert, normal mood/affect, + pertinent finding (oriented and able to give a history but notes that she has memory issues. ) Skin: normal color, warm/dry Diagnostics Laboratory Results 06/20/17 07:44 Red Blood Count 4.13, Mean Corpuscular Volume 103.6, Mean Corpuscular Hemoglobin 34.1, Mean Corpuscular Hemoglobin Concent 32.9, Mean Platelet Volume 9.7, Neutrophils (%) (Auto) 45.2, Lymphocytes (%) (Auto) 40.1, Monocytes (%) ( Auto) 11.3, Eosinophils (%) (Auto) 2.5, Basophils (%) (Auto) 0.6, Neutrophils # (Auto) 1.60, Lymphocytes # (Auto) 1.42, Monocytes # (Auto) 0.40, Eosinophils # ( Auto) 0.09, Basophils # (Auto) 0.02 06/19/17 18:35 Test 06/19/17 18:35 06/19/17 18:40 06/19/17 18:41 06/19/17 19:09 Neutrophils % (Manual) 28.1 % Lymphocytes % (Manual) 40.4 % Variant Lymphocytes % (manual) 14.0 % Monocytes % (Manual) 11.4 % Eosinophils % (Manual) 3.5 % Basophils % (Manual) 2.6 % Neutrophils # (Manual) 0.91 K/uL (1.4-6.5) Total Absolute Neutrophils 0.91 K/uL (1.4-6.5) Lymphocytes # (Manual) 1.31 K/uL (1.2-3.4) Absolute Variant Lymphocytes 0.45 K/uL Total Absolute Lymphocytes 1.76 K/uL (1.2-3.4) Monocytes # (Manual) 0.37 K/uL (0.11-0.59) Eosinophils # (Manual) 0.11 K/uL (0-0.5) Basophils # (Manual) 0.08 K/uL (0-0.2) Large Platelets 1+ Macrocytosis PRESENT Prothrombin Time 11.1 SECONDS (9.0-12.0) Prothromb Time International Ratio 1.1 (0.9-1.1) Activated Partial Thromboplast Time 28.9 SECONDS (21.0-31.0) Partial Thromboplastin Ratio 1.1 Anion Gap 4.0 mmol/L (3-11) Est Creatinine Clear Calc Drug Dose 55.8 ml/min Estimated GFR () 91.2 Estimated GFR (Non- 78.6 BUN/Creatinine Ratio 14.4 (10-20) Calcium Level 9.0 mg/dl (8.5-10.1) Total Bilirubin 0.4 mg/dl (0.2-1) Direct Bilirubin 0.1 mg/dl (0-0.2) Aspartate Amino Transf (AST/SGOT) 23 U/L (15-37) Alanine Aminotransferase (ALT/SGPT) 12 U/L (12-78) Alkaline Phosphatase 90 U/L (45-117) Total Protein 7.1 gm/dl (6.4-8.2) Albumin 3.4 gm/dl (3.4-5.0) Lipase 126 U/L (73-393) Bedside Lactic Acid Venous 0.52 mmol/L (0.90-1.70) Bedside Troponin I < 0.030 ng/ml (0-0.045) Urine Color YELLOW Urine Appearance CLOUDY (CLEAR) Urine pH 6.5 (4.5-7.5) Urine Specific [place] 1.011 (1.000-1.030) Urine Protein NEG (NEG) Urine Glucose (UA) NEG (NEG) Urine Ketones NEG (NEG) Urine Occult Blood NEG (NEG) Urine Nitrite NEG (NEG) Urine Bilirubin NEG (NEG) Urine Urobilinogen NEG (NEG) Urine Leukocyte Esterase SMALL (NEG) Urine WBC (Auto) 1-5 /hpf (0-5) Urine RBC (Auto) 0-4 /hpf (0-4) Urine Hyaline Casts (Auto) 0 /lpf (0-5) Urine Epithelial Cells (Auto) 20-30 /lpf (0-5) Urine Bacteria (Auto) NEG (NEG) Urine Yeast (Auto) (NONE PRSENT) Influenza Type A Antigen Neg for Influ A (NEG) Influenza Type B Antigen Neg for Influ B (NEG) Test 06/20/17 07:44 White Blood Count 3.54 K/uL (4.8-10.8) Red Blood Count 4.13 M/uL (4.2-5.4) Hemoglobin 14.1 g/dL (12.0-16.0) Hematocrit 42.8 % (37-47) Mean Corpuscular Volume 103.6 fL (80-100) Mean Corpuscular Hemoglobin 34.1 pg (25-34) Mean Corpuscular Hemoglobin Concent 32.9 g/dl (32-36) Platelet Count 126 K/uL (130-400) Mean Platelet Volume 9.7 fL (7.4-10.4) Neutrophils (%) (Auto) 45.2 % Lymphocytes (%) (Auto) 40.1 % Monocytes (%) (Auto) 11.3 % Eosinophils (%) (Auto) 2.5 % Basophils (%) (Auto) 0.6 % Neutrophils # (Auto) 1.60 K/uL (1.4-6.5) Lymphocytes # (Auto) 1.42 K/uL (1.2-3.4) Monocytes # (Auto) 0.40 K/uL (0.11-0.59) Eosinophils # (Auto) 0.09 K/uL (0-0.5) Basophils # (Auto) 0.02 K/uL (0-0.2) RDW Standard Deviation 46.2 fL (36.4-46.3) RDW Coefficient of Variation 12.1 % (11.5-14.5) Immature Granulocyte % (Auto) 0.3 % Immature Granulocyte # (Auto) 0.01 K/uL (0.00-0.02) Date/Time Source Procedure Growth Status 06/19/17 18:44 Blood Blood Culture Pending Received 06/19/17 19:09 Urine,Catheterized Urine Culture Pending Received Results Past 24 Hours Test 06/19/17 18:35 06/19/17 18:40 06/19/17 18:41 06/19/17 19:09 Range/Units White Blood Count 3.24 4.8-10.8 K/uL Red Blood Count 4.02 4.2-5.4 M/uL Hemoglobin 13.9 12.0-16.0 g/dL Hematocrit 42.1 37-47 % Mean Corpuscular Volume 104.7 80-100 fL Mean Corpuscular Hemoglobin 34.6 25-34 pg Mean Corpuscular Hemoglobin Concent 33.0 32-36 g/dl Platelet Count 121 130-400 K/uL Mean Platelet Volume 9.8 7.4-10.4 fL RDW Standard Deviation 47.2 36.4-46.3 fL RDW Coefficient of Variation 12.3 11.5-14.5 % Neutrophils % (Manual) 28.1 % Lymphocytes % (Manual) 40.4 % Variant Lymphocytes % (manual) 14.0 % Monocytes % (Manual) 11.4 % Eosinophils % (Manual) 3.5 % Basophils % (Manual) 2.6 % Neutrophils # (Manual) 0.91 1.4-6.5 K/uL Total Absolute Neutrophils 0.91 1.4-6.5 K/uL Lymphocytes # (Manual) 1.31 1.2-3.4 K/uL Absolute Variant Lymphocytes 0.45 K/uL Total Absolute Lymphocytes 1.76 1.2-3.4 K/uL Monocytes # (Manual) 0.37 0.11-0.59 K/uL Eosinophils # (Manual) 0.11 0-0.5 K/uL Basophils # (Manual) 0.08 0-0.2 K/uL Large Platelets 1+ Macrocytosis PRESENT Prothrombin Time 11.1 9.0-12.0 SECONDS Prothromb Time International Ratio 1.1 0.9-1.1 Activated Partial Thromboplast Time 28.9 21.0-31.0 SECONDS Partial Thromboplastin Ratio 1.1 Sodium Level 139 136-145 mmol/L Potassium Level 3.7 3.5-5.1 mmol/L Chloride Level 106 98-107 mmol/L Carbon Dioxide Level 29 21-32 mmol/L Anion Gap 4.0 3-11 mmol/L Blood Urea Nitrogen 10 7-18 mg/dl Creatinine 0.68 0.60-1.20 mg/dl Est Creatinine Clear Calc Drug Dose 55.8 ml/min Estimated GFR () 91.2 Estimated GFR (Non- 78.6 BUN/Creatinine Ratio 14.4 10-20 Random Glucose 82 70-99 mg/dl Calcium Level 9.0 8.5-10.1 mg/dl Total Bilirubin 0.4 0.2-1 mg/dl Direct Bilirubin 0.1 0-0.2 mg/dl Aspartate Amino Transf (AST/SGOT) 23 15-37 U/L Alanine Aminotransferase (ALT/SGPT) 12 12-78 U/L Alkaline Phosphatase 90 45-117 U/L Total Protein 7.1 6.4-8.2 gm/dl Albumin 3.4 3.4-5.0 gm/dl Lipase 126 73-393 U/L Bedside Lactic Acid Venous 0.52 0.90-1.70 mmol/L Bedside Troponin I < 0.030 0-0.045 ng/ml Urine Color YELLOW Urine Appearance CLOUDY CLEAR Urine pH 6.5 4.5-7.5 Urine Specific [place] 1.011 1.000-1.030 Urine Protein NEG NEG Urine Glucose (UA) NEG NEG Urine Ketones NEG NEG Urine Occult Blood NEG NEG Urine Nitrite NEG NEG Urine Bilirubin NEG NEG Urine Urobilinogen NEG NEG Urine Leukocyte Esterase SMALL NEG Urine WBC (Auto) 1-5 0-5 /hpf Urine RBC (Auto) 0-4 0-4 /hpf Urine Hyaline Casts (Auto) 0 0-5 /lpf Urine Epithelial Cells (Auto) 20-30 0-5 /lpf Urine Bacteria (Auto) NEG NEG Urine Yeast (Auto) NONE PRSENT Influenza Type A Antigen Neg for Influ A NEG Influenza Type B Antigen Neg for Influ B NEG Microbiology Results 06/19/17 Blood Culture, Received Pending 06/19/17 Blood Culture, Received Pending 06/19/17 Urine Culture, Received Pending Diagnostic Radiology CHEST ONE VIEW PORTABLE CLINICAL HISTORY: 86 years-old Female presenting with CHEST PAIN. TECHNIQUE: Portable upright AP view of the chest was obtained. COMPARISON: 11/05/2016. FINDINGS: Atherosclerosis of aortic arch. Cardiac silhouette enlarged. Lungs and pleural spaces clear. Osteopenia suspected. Upper abdomen normal. IMPRESSION: 1. Cardiomegaly. Otherwise no acute cardiopulmonary disease. Normal EKG Impression Assessment and Plan 86 yo F with recent h/o sinus infection and UTI presents with son for persistent cough and weakness. 1. Cough-likely secondary to post-nasal drip associated with sinsu infection above. She is finishing up her Amoxicillin course as of tomorrow and reports that "today is the first day I really haven;t coughed all that much." She states that she came to the ER to please her son who was concerned. Levaquin given in ER, however, will plan to finish Amox course and reassess in am. No evidence of new infection at this time. 2. Parkinson's disease with dementia-somewhat tremulous as she hadn't eaten or taken her sinemet all day. Gave both and will reassess. Cont Sinemet, Xanax, Celexa 3. Chronic lower back pain-PRN lidocaine patch 4. Anxiety-Celexa and Ativan per home regimen 5. HLP-Lipitor DVT proph-Yudy Full Code Dispo-likely to be discharged in the morning after repeating her CBC with differential depending on PT/OT recommendations. Tigist Hernandez DO [facility] Med/Surg Resuscitation Status FULL RESUSCITATION VTE Prophylaxis VTE Risk Assessment Done? Y/N: Yes Risk Level: Moderate Given or contraindicated: Enoxaparin (Lovenox)SQ
[2017-06-20] MEDS: ALPRAZOLAM 0.5 MG TAB PO SCH ×3 (00:31→13:44)
[2017-06-20] MEDS: ACETAMINOPHEN 325 MG TAB PO SCH ×2 (00:32→07:46)
[2017-06-20 00:59] VITALS: BP 151/83; PULSE 78; TEMP 36.6; O2SAT 95
[2017-06-20 07:05] VITALS: BP 130/82; PULSE 75; TEMP 36.9; O2SAT 93
[2017-06-20] MEDS: CARBIDOPA/LEVODOPA 25/100MG TAB PO SCH ×3 (07:45→17:05)
[2017-06-20] MEDS: POLYETHYLENE (MIRALAX) 17 GM PACK PO SCH ×2 (07:46→07:53)
[2017-06-20 08:03] LABS: BASO % 0.6 %; BASO ABS # 0.02 K/uL (0-0.2); EOS % 2.5 %; EOS ABS # 0.09 K/uL (0-0.5); HEMATOCRIT 42.8 % (37-47); HEMOGLOBIN 14.1 g/dL (12.0-16.0); IG# 0.01 K/uL (0.00-0.02); LYMPH % 40.1 %; LYMPH ABS # 1.42 K/uL (1.2-3.4); MEAN CELL VOLUME 103.6 fL (80-100); MEAN CORPUSCULAR HEMOGLOBIN 34.1 pg (25-34); MEAN CORPUSCULAR HGB CONC 32.9 g/dl (32-36); MEAN PLATELET VOLUME 9.7 fL (7.4-10.4); MONO % 11.3 %; NEUT % 45.2 %; PLATELET COUNT 126 K/uL (130-400); RED CELL DISTRIBUTION WIDTH CV 12.1 % (11.5-14.5); RED CELL DISTRIBUTION WIDTH SD 46.2 fL (36.4-46.3); WHITE BLOOD COUNT 3.54 K/uL (4.8-10.8)
[2017-06-20] MEDS ORDERED: CITALOPRAM 20 MG TAB PO SCH (09:00)
[2017-06-20] MEDS ORDERED: ENOXAPARIN 40 MG/0.4 ML SYR SQ SCH (09:00)
[2017-06-20] MEDS ORDERED: AMOXICILLIN 500 MG CAP PO SCH (09:00)
--- NOTE | 2017-06-20 15:05 | Hospitalist Progress Note ---
Hospitalist Progress Note Date of Service Jun 20, 2017. (Ekta Baig ., DUYEN) Subjective Patient seen and examined. Offers no complaints. Reports she is ready to go home. Denies cough, chest pain, and shortness of breath. No lightheadedness, dizziness. Denies abdominal pain, nausea. (Ekta Baig ., DUYEN) Pt evaluation today including: conversation w/ patient, conversation w/ family , physical exam, chart review, lab review Constitutional: No see HPI, No fever, No chills, No sweats, No weight loss, No weakness, No fatigue, No problem reported Eyes: No see HPI, No worsening of vision, No eye pain, No redness, No discharge, No diplopia, No problem reported ENT: No see HPI, No hearing loss, No unusual epistaxis, No nasal symptoms, No sore throat, No tinnitus, No dental problems, No trouble swallowing, No problem reported Respiratory: No see HPI, No cough, No sputum, No wheezing, No shortness of breath, No dyspnea on exertion, No dyspnea at rest, No hemoptysis, No problem reported Cardiovascular: No see HPI, No chest pain, No orthopnea, No PND, No edema, No claudication, No palpitations, No problem reported Abdomen: No see HPI, No pain, No nausea, No vomiting, No diarrhea, No constipation, No GI bleeding, No problem reported Neurologic: + balance problems (DUE TO PARKINSON'S DISEASE ), + problem reported (CHRONIC TREMOR /GAIT DISTURBANCE DUE TO PARKINSON'S DISEASE /CHRONIC HEADACHE ) All Other Systems: Reviewed and Negative (Debbie Guzmán M.D.) Medications Medications (Trade) Dose Ordered Sig/Joelle Route Start Time Stop Time Status Last Admin Dose Admin Sodium Chloride 250 ml @ 999 mls/hr Q16M STAT IV 06/19/17 17:58 06/19/17 18:13 DC 06/19/17 17:58 999 MLS/HR Sodium Chloride 1,000 ml @ 100 mls/hr Q10H STAT IV 06/19/17 17:58 06/19/17 23:45 DC 06/19/17 17:58 100 MLS/HR Levofloxacin (Levaquin / D5W) 750 mg NOW STAT IV 06/19/17 20:42 06/19/17 20:43 DC 06/19/17 20:42 750 MG Acetaminophen (Tylenol Tab) 325 mg BID PO 06/19/17 23:15 07/19/17 23:14 06/20/17 07:46 325 MG Alprazolam (Xanax Tab) 0.5 mg TID PO 06/19/17 23:15 07/19/17 23:14 06/20/17 13:44 0.5 MG Amoxicillin (Amoxil Cap) 500 mg BID PO 06/20/17 09:00 06/20/17 22:00 06/20/17 07:45 500 MG Atorvastatin Calcium (Lipitor Tab) 10 mg QPM PO 06/19/17 23:15 07/19/17 23:14 06/20/17 00:31 10 MG Carbidopa/Levodopa (Sinemet 25/ 100MG Tab) 1 tab TIDM PO 06/20/17 08:00 07/20/17 07:59 06/20/17 17:05 1 TAB Carbidopa/Levodopa (Sinemet Cr 25/ 100MG Tab) 1 tab QPM PO 06/19/17 23:15 07/19/17 23:14 06/20/17 00:31 1 TAB Citalopram Hydrobromide (celeXA TAB) 10 mg QAM PO 06/20/17 09:00 07/20/17 08:59 06/20/17 07:45 10 MG Enoxaparin Sodium (Lovenox Inj) 40 mg DAILY SQ 06/20/17 09:00 07/20/17 08:59 06/20/17 07:47 40 MG (Debbie Guzmán M.D.) Objective Vital Signs Last Vital Signs Documentation Date Time Temp Pulse Resp B/P (MAP) Pulse Ox O2 Delivery O2 Flow Rate FiO2 06/20/17 08:00 Room Air 06/20/17 07:05 36.9 75 20 130/82 (98) 93 06/19/17 21:43 2.0 (Ekta Baig ., DUYEN) Physical Exam General Appearance: WD/WN, no apparent distress Respiratory/Chest: no respiratory distress, + decreased breath sounds (BL bases , poor inspiratory effort) Cardiovascular: regular rate, rhythm, no edema Abdomen: normal bowel sounds, non tender, soft Neurologic/Psychiatric: alert, oriented x 3, + pertinent finding (resting tremor noted) (Ekta Baig CRNP) Laboratory Results Item Value Date Time White Blood Count 3.54 K/uL L 06/20/17 07 Hemoglobin 14.1 g/dL 06/20/17 07 Hematocrit 42.8 % 06/20/17 07 Platelet Count 126 K/uL L 06/20/17 0744 Sodium Level 139 mmol/L 06/19/171834 Potassium Level 3.7 mmol/L 06/19/171834 Blood Urea Nitrogen 10 mg/dl 06/19/171834 Creatinine 0.68 mg/dl 06/19/171834 (Ekta Baig CRNP) Assessment and Plan GENERALIZED WEAKNESS - patient doing well, reports cough is almost totally gone - completing amoxicillin today for URI and UTI (outpatient culture grew pansensitive E. Coli) - likely deconditioning from recent URI and UTI - PT/OT evals PARKINSON'S - continue Sinemet ANXIETY - continue Citalopram and Xanax HLD - continue statin DVT PROPHYLAXIS - SQ Lovenox DISPO - awaiting PT/OT evals; likely d/c home vs. rehab today (Ekta Baig CRNP) ATTENDING ADDENDUM : pt seen and examined , care co ordinated with Ekta GELLER family -2 sons and daughter in law present at bedside pt had both PT/OT eval earlier , very eager to be discharged home no complain of fever or chills, no cough or post nasal drip , no urinary symptoms feels like her baseline Lab reviewed : Neutropenia 3.4-> 3.5 /borderline thrombocytopenia 126 K OT eval recommends at baseline , can return home with previous service /PT return home with service /24 hr care /no benefit with Rehab /SNF per family pt did better at PT than what she does at home stable to be discharged home today with home health will have out pt lab work check CBC on next physician visit stable to be discharged home , hospital follow up with Dr Skinner on 06/25/17 Family present at bedside in agreement with plan Discharge planning: home with home health (Debbie Guzmán M.D.)
[2017-06-20 15:40] VITALS: BP 137/85; PULSE 84; TEMP 36.7; O2SAT 94
[2017-06-20 15:46] VITALS: O2SAT 94
[2017-06-20 15:48] VITALS: BP 137/85; PULSE 84; O2SAT 94
--- NOTE | 2017-06-20 17:27 | Discharge Instructions ---
Discharge Instructions Date of Service Jun 20, 2017. Admission Reason for Admission: COUGH Discharge Discharge Diagnosis / Problem: GENERALIZED WEAKNESS, NEUTROPENIA /PARKINSON'S DISEASE Discharge Goals Goal(s): Decrease discomfort, Increase independence, Improve disease control, Diagnostic testing, Therapeutic intervention Activity Recommendations Activity Limitations: resume your previous activity . Instructions / Follow-Up Instructions / Follow-Up HOSPITAL FOLLOW UP : 06/25/2017 9:40 AM Jaylen Skinner MD Internal Medicine [facility] DR MOLINA'S SCHEDULE IS FULL LAB WORK : COMPLETE BLOOD COUNT ON Friday05/25/17 ( LOW WHITE COUNT, NEUTROPENIA ) PLEASE HAVE HOME HEALTH VISITING NURSE AND HOME PHYSICAL THERAPY RECOMMEND LIFE ALERT SERVICE Current Hospital Diet Patient's current hospital diet: Regular Diet Discharge Diet Recommended Diet: Regular Diet Pending Studies Studies pending at discharge: no Medical Emergencies . Who to Call and When: Medical Emergencies: If at any time you feel your situation is an emergency, please call 911 immediately. . Non-Emergent Contact Non-Emergency issues call your: Primary Care Provider . . "Provider Documentation" section prepared by Debbie Guzmán. . VTE Core Measure Inpt VTE Proph given/why not?: Enoxaparin (Lovenox)SQ
[2017-06-20 17:30] VITALS: BP 137/85; PULSE 84; TEMP 36.7; O2SAT 94
--- NOTE | 2017-06-20 21:58 | Discharge Summary ---
Discharge Summary Date of Service Jun 20, 2017. Discharge Summary Admission Date: Jun 19, 2017 at 20:48 Discharge Date: Jun 20, 2017 Discharge Disposition: Home with services Principal Diagnosis: GENERALIZED WEAKNESS, NEUTROPENIA /PARKINSON'S DISEASE Medication Reconciliation Continued Medications: Acetaminophen (Apap) 325 Mg Tab 325 MG PO BID Alprazolam (Xanax) 0.5 Mg Tab 0.5 MG PO TID Atorvastatin (Lipitor) 10 Mg Tab 10 MG PO QPM Carbidopa-Levodopa (Sinemet) 1 Tab Tab 1 TAB PO TIDM for 30 Days, TAB 5 Refills Carbidopa/Levodopa (Sinemet Cr 25MG/100MG) Tabcr 1 TAB PO QPM, TAB Citalopram Hydrobromide (Citalopram Hydrobromide) 10 Mg Tab 10 MG PO QAM Lidocaine (Lidocaine) 1 Patch Tdsy 1 PATCH TOP DAILY Polyethylene Glycol 3350 (Miralax) 1 Pow Pow 17 GM PO MWF Discontinued Medications: Amoxicillin (Amoxil) 500 Mg Cap 500 MG PO BID, #21 CAP take 500mg twice a day for 10 days Admission Information HPI (per Admitting provider): 86 yo F who lives alone and has Parkinson's disease presents to the ER for a persistent nonproductive cough at the request of her son, who is concerned. The patient states that today was the first day she has not really coughed much , she denies shortness of breath, fevers, chills, recent sick contacts, and she is actually feeling well. She was treated with 10 days of Amoxicillin starting 06/10 for a sinus infection as outpatient and tomorrow is her last day. She received Levaquin in the ER. She was also found to have a UTI as outpatient recently, but there is no evidence of infection or symptoms at this time after the amoxicillin and she was not given any other antibiotics. She has a mild headache but otherwise has no ENT symptoms such as ear pain or fullness, sore throat, sinus drainage or pain. She has partkinson's and admits to not taking her sinemet or other meds and not eating all day as a result of coming to the ER today. She is hungry and requesting food. She denies abdominal pain, diarrhea or other issues with her bowels, however, on exam there is some mild TTP in the LLQ and RLQ on exam. Her belly is soft and not distended and at rest she has no issues with pain. Labs in the ER reveal a mild neutropenia with a WBC of 3K, but were otherwise normal. Physical Exam (per Admitting): General Appearance: WD/WN, no apparent distress Head: normocephalic, atraumatic Eyes: normal inspection, PERRL, sclerae normal ENT: normal ENT inspection, TMs normal (cerumen blocking external canal on the L), pharynx normal, + pertinent finding (hard of hearing) Neck: supple, no adenopathy, trachea midline Respiratory/Chest: lungs clear, normal breath sounds, no respiratory distress, no accessory muscle use Cardiovascular: regular rate, rhythm, no edema, no gallop, no JVD, no murmur , normal peripheral pulses Abdomen/GI: normal bowel sounds, soft, + tenderness (mild TTP in RLQ and LLQ ), + pertinent finding (+BS present, nondistended) Back: normal inspection Extremities/Musculoskelatal: normal inspection, no pedal edema 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 ) Skin: normal color, warm/dry Hospital Course Physical Exam General Appearance: WD/WN, no apparent distress Respiratory/Chest: no respiratory distress, + decreased breath sounds (BL bases , poor inspiratory effort) Cardiovascular: regular rate, rhythm, no edema Abdomen: normal bowel sounds, non tender, soft Neurologic/Psychiatric: alert, oriented x 3, + pertinent finding (resting tremor noted) (Ekta Baig ., DUYEN) Laboratory Results Item Value Date Time White Blood Count 3.54 K/uL L 06/20/17 07 Hemoglobin 14.1 g/dL 06/20/17 07 Hematocrit 42.8 % 06/20/17 07 Platelet Count 126 K/uL L 06/20/17 07 Sodium Level 139 mmol/L 06/19/171834 Potassium Level 3.7 mmol/L 06/19/171834 Blood Urea Nitrogen 10 mg/dl 06/19/171834 Creatinine 0.68 mg/dl 06/19/171834 (Ekta Baig CRNP) A&P - Hospitalist Assessment and Plan GENERALIZED WEAKNESS - patient doing well, reports cough is almost totally gone - completing amoxicillin today for URI and UTI (outpatient culture grew pansensitive E. Coli) - likely deconditioning from recent URI and UTI - PT/OT evals PARKINSON'S - continue Sinemet ANXIETY - continue Citalopram and Xanax HLD - continue statin DVT PROPHYLAXIS - SQ Lovenox DISPO - awaiting PT/OT evals; likely d/c home vs. rehab today (Ekta Baig ., DUYEN) ATTENDING ADDENDUM : pt seen and examined , care co ordinated with Ekta GELLER family -2 sons and daughter in law present at bedside pt had both PT/OT eval earlier , very eager to be discharged home no complain of fever or chills, no cough or post nasal drip , no urinary symptoms feels like her baseline Lab reviewed : Neutropenia 3.4-> 3.5 /borderline thrombocytopenia 126 K OT eval recommends at baseline , can return home with previous service /PT return home with service /24 hr care /no benefit with Rehab /SNF per family pt did better at PT than what she does at home stable to be discharged home today with home health will have out pt lab work check CBC on next physician visit stable to be discharged home , hospital follow up with Dr Skinner on 06/25/17 Family present at bedside in agreement with plan Discharge planning: home with home health (Debbie Guzmán M.D.) Discharge Instructions Discharge Instructions Date of Service Jun 20, 2017. Admission Reason for Admission: COUGH Discharge Discharge Diagnosis / Problem: GENERALIZED WEAKNESS, NEUTROPENIA /PARKINSON'S DISEASE Discharge Goals Goal(s): Decrease discomfort, Increase independence, Improve disease control, Diagnostic testing, Therapeutic intervention Activity Recommendations Activity Limitations: resume your previous activity . Instructions / Follow-Up Instructions / Follow-Up HOSPITAL FOLLOW UP : 06/25/2017 9:40 AM Jaylen Skinner MD Internal Medicine [facility] DR MOLINA'S SCHEDULE IS FULL LAB WORK : COMPLETE BLOOD COUNT ON Friday05/25/17 ( LOW WHITE COUNT, NEUTROPENIA ) PLEASE HAVE HOME HEALTH VISITING NURSE AND HOME PHYSICAL THERAPY RECOMMEND LIFE ALERT SERVICE Current Hospital Diet Patient's current hospital diet: Regular Diet Discharge Diet Recommended Diet: Regular Diet Pending Studies Studies pending at discharge: no Medical Emergencies . Who to Call and When: Medical Emergencies: If at any time you feel your situation is an emergency, please call 911 immediately. . Non-Emergent Contact Non-Emergency issues call your: Primary Care Provider . . "Provider Documentation" section prepared by Debbie Guzmán. . VTE Core Measure Inpt VTE Proph given/why not?: Enoxaparin (Lovenox)SQ Additional Copies To Hailee Molina D.O.
== END 2017-06-20 18:18 | disposition home health service (06) ==
LOC: C.EDB 16:23 → C.MS2W 20:48 → ENRESERV 21:38
PROVIDERS: ADMIT Hospitalist; ATTEND Internal Medicine
DX: R53.1 Weakness (principal); R51 Headache; D70.9 Neutropenia, unspecified; G20 Parkinson's disease; F41.9 Anxiety disorder, unspecified; E78.5 Hyperlipidemia, unspecified; Z87.891 Personal history of nicotine dependence

== ENCOUNTER → 2017-08-12 | Outpatient (CLI) | payer OTHER, MEDICARE ==
[~2017-08-12] MED LIST changes: -ACET-1256 PO; +ACET325T82 PO; -CARB25TA PO; +CARB25TA16 PO; +CARB25TA2 PO; +LDDP5 TOP; -LIDO5DIS10 TD; -MAGNSUS5 PO
== END | disposition home or self-care (01) ==
LOC: C.LABOAKS 11:07
PROVIDERS: ATTEND Internal Medicine Critical Care Medicine
DX: N39.0 Urinary tract infection, site not specified (principal)